=== PATIENT | female | born 1950 | race Two or more races ===

== ENCOUNTER → 2016-07-09 | Day surgery (SDC) | payer MEDICARE, OTHER ==
[2016-07-09] VITALS (8 sets, daily range): BP systolic 135–152; BP diastolic 61–94
[~2016-07-09] VITALS: Ht 162.6 cm; Wt 79.4 kg
[~2016-07-09] MED LIST: Akten 3.5% 1ml Btl ONE; BSS 15ml BTL ONE; BSS 500ml btl ONE; CALCIUM500 M2 PO; COQ10 PO; Dexamethasone 4mg/ml vial ONE; Diclofenac Sod 0.1% Op Soln ONE; EPINEPHrine 1mg/1ml Amp ONE; GLUCOSAMINE &1 EAC2 PO; Gatifloxacin Opth Solution 0.5% ONE; LR 1000ml 1,000 ML IVLG SCH; LR 1000ml ONE; Lidocaine 1% MPF 10mg/ml 5ml ONE; Midazolam 2mg/2ml Inj ONE; NKM; NS Irrig 1000ml ONE; OMEGA 3 FISH O1 EAC1 PO; Phenylephrine 2.5% Op Soln ONE; Povidone-Iodine 5% opth solution ONE; Sodium Hyaluronate 14 mg/ml 0.85ml ONE; Sterile Water Irrig 1000ml IRRIG ONE; Tobradex Opth Susp 2.5ml ONE; Tropicamide 1% Opth Soln ONE; VITAMIN B122500 MCG PO; VITAMIN D400 INTLU ORAL; VITAMIN E400 INTLU ORAL
[2016-07-09] MEDS: Phenylephrine 2.5% Op Soln LEFT EYE SCH ×3 (06:57→07:15)
[2016-07-09] MEDS: Tobradex Opth Susp 2.5ml LEFT EYE SCH ×3 (06:57→07:16)
[2016-07-09] MEDS: Gatifloxacin Opth Solution 0.5% LEFT EYE SCH ×3 (06:57→07:16)
[2016-07-09] MEDS: Diclofenac Sod 0.1% Op Soln LEFT EYE SCH ×3 (06:57→07:16)
[2016-07-09] MEDS: Tropicamide 1% Opth Soln LEFT EYE SCH ×3 (06:58→07:16)
[2016-07-09] MEDS: Akten 3.5% 1ml Btl LEFT EYE SCH ×3 (06:58→07:15)
--- NOTE | 2016-07-09 07:06 | Pre-Procedure Note/Attestation ---
Pre-Procedure Note/Attestation Complete Prior to Procedure Planned Procedure: left Procedure Narrative: cataract extraction with implant left eye Indications for Procedure Pre-Operative Diagnosis: cataract left eye Attestation I attest that I discussed the nature of the procedure; its benefits; risks and complications; and alternatives (and the risks and benefits of such alternatives ), prior to the procedure, with the patient (or the patient's legal retention representative). I attest that, if there was a reasonable possibility of needing a blood transfusion, the patient (or the patient's legal retention representative) was given the [facility] standardized written summary, pursuant to the Jose Brannon Blood Safety Act ([place] Health and Safety Code # 1645, as amended). I attest that I re-evaluated the patient just prior to the surgery and that there has been no change in the patient's H&P, except as documented below: LEE CORDERO Jul 09, 2016 07:06
--- NOTE | 2016-07-09 08:39 | Anethesia Preoperative Eval ---
Anesthesia Pre-op PMH/ROS General Date of Evaluation: Jul 09, 2016 Time of Evaluation: 08:25 Anesthesiologist: Rebecca ASA Score: ASA 2 Mallampati Score Class I : Soft palate, uvula, fauces, pillars visible Class II: Soft palate, uvula, fauces visible Class III: Soft palate, base of uvula visible Class IV: Only hard plate visible Mallampati Classification: Class II Surgeon: Dave Diagnosis: cataract left eye Surgical Procedure: cataract extraction left eye with IOL placement Anesthesia History: none Family History: no anesthesia problems Allergies: Coded Allergies: NO KNOWN ALLERGIES (Verified Allergy, Unknown, 05/13/16) Medications: see eMAR Past Medical History Cardiovascular: Denies: CAD, HTN, DE, arrhythmia, other, valve dz Pulmonary: Denies: COPD, ZULY, asthma, other Gastrointestinal/Genitourinary: Denies: CRI, ESRD, GERD, other Neurologic/Psychiatric: Denies: CVA, TIA, dementia, depression/anxiety, other Endocrine: Denies: DM, hypothyroidism, other, steroids HEENT: Denies: [place] (L), [place] (R), cataract (L), cataract (R), glaucoma, other Hematology/Immune: Denies: DVT, anemia, bleeding disorder, other Musculoskeletal/Integumentary: Denies: DDD, DJD, OA, RA, edema, other Other: obesity PMH Narrative: obesity PSxH Narrative: cataract right eye Anesthesia Pre-op Phys. Exam Physician Exam Last Vital Signs Date Time Temp Pulse Resp B/P Pulse Ox O2 Delivery O2 Flow Rate FiO2 07/09/16 07:03 97.8 68 18 144/76 96 Room Air Constitutional: NAD Neurologic: CN 2-12 intact Cardiovascular: RRR Respiratory: CTA Gastrointestinal: S/NT/ND Airway Exam Mallampati Score: Class II MO: full ROM: full Teeth: intact Dentures: no lower, no upper ALVIN TIERNEY D.O. Jul 09, 2016 08:39
--- NOTE | 2016-07-09 08:54 | Immediate Post-Op Evaluation ---
Immediate Post-Op Evalulation Immediate Post-Op Evalulation Procedure: cataract extraction left eye with IOL placement Date of Evaluation: Jul 09, 2016 Time of Evaluation: 08:57 IV Fluids: 200ml Blood Products: none Estimated Blood Loss: none Urinary Output: due to void Blood Pressure Systolic: 144 Blood Pressure Diastolic: 62 Pulse Rate: 70 Respiratory Rate: 16 O2 Sat by Pulse Oximetry: 98 Temperature (Fahrenheit): 97.2 Pain Score (1-10): 0 Nausea: No Vomiting: No Complications none Patient Status: awake, reacts Hydration Status: adequate Drug: n/a ALVIN TIERNEY D.O. Jul 09, 2016 08:54
--- NOTE | 2016-07-09 09:01 | 48 Hour Post Anesthesia Eval ---
Post Anesthesia Evaluation Procedure: cataract extraction left eye with IOL placement Date of Evaluation: Jul 09, 2016 Time of Evaluation: 09:00 Blood Pressure Systolic: 141 0: 80 Pulse Rate: 76 Respiratory Rate: 16 Temperature (Fahrenheit): 98.2 O2 Sat by Pulse Oximetry: 98 Airway: patent Nausea: No Vomiting: No Pain Intensity: 0 Hydration Status: adequate Cardiopulmonary Status: stable Mental Status/LOC: patient returned to baseline Follow-up Care/Observations: as per surgeon Post-Anesthesia Complications: none Follow-up care needed: N/A ALVIN TIERNEY D.O. Jul 09, 2016 09:01
--- NOTE | 2016-07-09 09:10 | Brief Operative Note ---
Immediate Post Operative Note Operative Note Pre-op Diagnosis: cataract left eye Procedure: phacoemulsification of cataract with implant left eye Post-op Diagnosis: same as pre-op Surgeon: clayton faulkner Sales Representative Education Courses: none Anesthesiologist: martha rondon Anesthesia: MAC Specimen: none Complications: none Condition: stable Estimated Blood Loss: none Drains: none Implant(s) used?: Yes CLAYTON FAULKNER Jul 09, 2016 09:10
--- NOTE | 2016-07-09 10:59 | Operative Note - Dictated ---
DATE OF OPERATION: 07/09/2016 PREOPERATIVE DIAGNOSIS: Cataract, left eye. POSTOPERATIVE DIAGNOSIS: Cataract, left eye. PROCEDURE: Phacoemulsification cataract left eye with placement of posterior chamber intraocular lens. SURGEON: Jose Acosta M.D. CHEF PASSENGER VESSEL: None. ANESTHESIA: MAC/topical. ANESTHESIOLOGIST: Dr. Kodak Fernandez. INDICATION FOR PROCEDURE: Poor vision, left eye. DESCRIPTION OF FINDINGS: Posterior subcapsular cataract and nuclear sclerotic cataract, left eye. DESCRIPTION OF PROCEDURE: The patient received a topical anesthetic block consisting of 3.5% Akten eye drops. The eye was then prepped and draped in usual manner. A lid speculum was placed. An operating Zeiss microscope was positioned. A temporal corneal groove was made with the justin blade. A SuperSharp blade made a stab incision at the 6 o'clock position. A 0.1 mL of 1% nonpreserved intracameral lidocaine was injected. Healon was instilled into the anterior chamber and 2.5/2.8 mm trapezoidal justin blade was used to complete the temporal corneal wound. A cystotome was used to create an anterior capsular flap. Utrata forceps were used to complete the capsulorrhexis. BSS on a cannula was used to hydrodissect the nucleus. The lens nucleus was phacoemulsified in a phaco-fracture technique. Remaining cortical material was removed with the I/A and the posterior capsule polished with the I/A on Cap vac. Healon was reinstilled into the capsular bag and anterior chamber, and an Wheeler foldable one-piece posterior chamber intraocular lens, model ZCB00, power 23.0 diopter, serial #[id number] was placed in the injector. The lens was put in the capsular bag. The I/A tip was used to remove the Healon and position the lens. The wound edge was hydrated with BSS and a blunt-tipped cannula. The wound was checked and found to be watertight. The lid speculum was removed and a drop of TobraDex and Zymaxid was placed. A clear plastic shield was taped over the eye. The patient tolerated the procedure well and left operating room in good condition. . Jose Acosta M.D. ([facility] [place]) DR: Sam JOB#: [id number] CC: Carlos Valdovinos M.D. ([facility] [place]); Fax#: [phone] [facility]
== END | disposition home or self-care (01) ==
LOC: SUR 05:46
DX: H25.12 Age-related nuclear cataract, left eye (principal); H25.042 Posterior subcapsular polar age-related cataract, left eye; J45.909 Unspecified asthma, uncomplicated; E66.9 Obesity, unspecified; Z68.30 Body mass index [BMI] 30.0-30.9, adult
CPT/HCPCS: 66984; J0171; J1100; J2250; J7120; V2632; 94003; 94150